=== PATIENT | female | born 1950 | race African-American/Black ===

== ENCOUNTER → 2020-03-06 | Outpatient (CLI) | payer MEDICARE, OTHER ==
--- NOTE | 2020-03-06 14:45 | KCIC ---
XR SHOULDER_LEFT 2+ VIEWS DATE: 03/06/2020 12:00 AM INDICATION: Reason: Painful Lt shoulder / Spl. Instructions: / History: COMPARISON: None. FINDINGS: Bones: There is no evidence of acute fracture or dislocation. Joints: Mild degenerative changes of the acromioclavicular joint. Glenohumeral joint is congruent. T he acromiohumeral distance is not narrowed. Miscellaneous: No abnormal soft tissue calcifications in the shoulder. IMPRESSION: No acute osseous abnormality. Mild AC joint osteoarthritis. Electronically signed by: Jonn Aranda MD (03/06/2020 2:42 PM) [id number]
--- NOTE | 2020-03-06 16:09 | KCIC ---
EXAM: Bilateral knees, standing view. HISTORY: Pain. COMPARISON: 08/26/2009. FINDINGS: A frontal standing view both knees obtained. There is severe medial right and mild left med ial compartment joint space narrowing with subchondral sclerosis, subchondral cyst formation and spur ring. There is mild bilateral lateral compartment spurring. There is mild bilateral genu varus. IMPRESSION: 1. Severe medial and mild lateral compartment osteoarthritis of the right knee with slight genu varus . 2. Mild medial greater than lateral compartment osteoarthritis of the left knee with slight genu varu s. Electronically signed by: Su Recinos MD (03/06/2020 4:06 PM) [email or web address]
== END ==
LOC: KCIC 14:01
PROVIDERS: ATTEND Physical Medicine & Rehabilitation
DX: M19.012 Primary osteoarthritis, left shoulder (principal); M17.0 Bilateral primary osteoarthritis of knee; M21.162 Varus deformity, not elsewhere classified, left knee; M21.161 Varus deformity, not elsewhere classified, right knee; M76.892 Other specified enthesopathies of left lower limb, excluding foot; M76.891 Other specified enthesopathies of right lower limb, excluding foot; M25.862 Other specified joint disorders, left knee; M25.861 Other specified joint disorders, right knee
CPT/HCPCS: 73030; 73565